=== PATIENT | female | born 1955 | race Hispanic/Latino ===

== ENCOUNTER → 2017-07-14 | Outpatient (CLI) | payer OTHER ==
[~2017-07-14] MED LIST: CALCIUM PO; CRESTOR5 MG PO; LISINOPRIL20 MG PO; MULTIVITAMIN PO; NEXIUM40 MG PO
--- NOTE | 2017-07-16 08:23 | Diagnostic Imaging Report ---
TECHNIQUE: Magnetic resonance imaging of the LEFT SHOULDER was performed WITHOUT injected contrast. HISTORY: Pain, limited motion COMPARISON: None available. FINDINGS: MUSCLES AND TENDONS: Rotator Cuff: Tendons: Supraspinatus and Infraspinatus: Bursal sided anterior supraspinatus tear with irregular intrasubstance extension, maximal tendon involvement is greater than 50%. No complete tendon retraction. Teres Minor: Intact Subscapularis: Low-grade articular sided partial-thickness tearing with mild delamination extending to the myotendinous junction with associated subcentimeter myotendinous cyst. Muscles: No focal muscle atrophy. Biceps Tendon: The long head of the biceps tendon is intact and within the intertubercular groove. GLENOHUMERAL JOINT: Glenoid Labrum: Mild complex tearing and attenuation, most notably the posterosuperior and posteroinferior labrum. Articular Cartilage: Diffuse low-grade to intermediate grade erosion and fibrillation. Joint Fluid: No effusion. ACROMIOCLAVICULAR JOINT: Moderate hypertrophic degenerative changes of the acromioclavicular joint. Trace effusion and synovitis. No effusion. BONE: The acromion is unremarkable. No focal or infiltrative bone marrow replacing abnormality. No acute fracture. SOFT TISSUES: Trace fluid and synovitis within the subacromial/subdeltoid bursa. IMPRESSION: 1. High-grade, partial-thickness, bursal sided supraspinatus tear. 2. Mild subacromial/subdeltoid bursitis. 3. Low-grade, articular sided, subscapularis partial thickness tear. 4. Mild to moderate degenerative changes of the glenohumeral joint and acromioclavicular joint, including mild degenerative tearing of the glenoid labrum. Signed by: Dr. Rigo Hooper D.O., M.M.M. on 07/16/2017 8:20 AM
== END ==
LOC: MRI 08:02
PROVIDERS: ATTEND Family Medicine
DX: M25.512 Pain in left shoulder (principal)